=== PATIENT | male | born 1965 | race Caucasian/White ===

== ENCOUNTER 2017-03-09 09:25 | Day surgery (SDC) | payer MEDICARE, OTHER ==
[2017-03-05 14:50] VITALS: BMI 36.9
[~2017-03-09 09:25] MED LIST: LACTATED RINGERS 1,000 ML IV SCH
[2017-03-09 10:29] VITALS: RESP 18; TEMP 98
[2017-03-09] MEDS ORDERED: PROPOFOL 10 MG/ML 20 ML VIAL IV ONE (11:12)
[2017-03-09] MEDS ORDERED: LIDOCAINE 1% INJ 10MG/ML (20 ML MDV) ONE (11:12)
[2017-03-09] MEDS ORDERED: LACTATED RINGERS 1,000 ML IV ONE (11:33)
--- NOTE | 2017-03-09 11:50 | P.PCN ---
Date of Procedure: 03/09/17 Preoperative Diagnosis: Postoperative Diagnosis: Procedure(s) Performed: Procedure: Colonoscopy and polypectomy. Preoperative diagnosis: Screening for neoplasia. Postoperative diagnosis: Small sigmoid polyps snared but no large polyps or cancer. Preparation: HalfLytely prep. Sedation: Was provided by anesthesia. Brief clinical history: The patient is a 51-year-old male who is referred for this evaluation for screening for neoplasia age being his risk factor. Has no abdominal complaints, bleeding or anemia. No family history of colon cancer. This would be his first colonoscopy. Procedure: With the patient on his left lateral decubitus position and after informed consent and adequate sedation, the perianal area was inspected and it did not show any fissures or fistulas. There were no masses felt on digital rectal examination. The Olympus CFQ 160L video colonoscope was then inserted in the rectum in the usual fashion and advanced to the cecum. There was a small polyp in the proximal sigmoid which was snared and retrieved by suction and there were couple smaller polyps in the distal sigmoid which was snared and retrieved by suction as well. There were no large polyps or cancer. No obvious diverticular disease or other pathology. I retroflexed the endoscope in the rectum before the endoscope was withdrawn. Low-grade internal hemorrhoids were noted but there was no evidence of bleeding. The patient tolerated the procedure well. Plan: The patient was reassured. Discussed dietary measures and local care for hemorrhoids. He will follow-up with you as planned and I recommended repeat exam in 5 years. Implants: Indications for Procedure: Operative Findings: Description of Procedure:
[2017-03-09 12:13] VITALS: BP 141/95; PULSE 63
== END 2017-03-09 12:27 | disposition home or self-care (01) ==
LOC: ORWHC2ENDO 09:25
DX: Z12.11 Encounter for screening for malignant neoplasm of colon (principal); D12.5 Benign neoplasm of sigmoid colon; K64.8 Other hemorrhoids
CPT/HCPCS: 88305; 45385; J2001; J2704